=== PATIENT | female | born 1970 | race Caucasian/White ===

== ENCOUNTER → 2016-06-14 | Outpatient (CLI) | payer MEDICAID ==
[~2016-06-14] VITALS: Ht 167.6 cm; Wt 133.8 kg
[~2016-06-14] MED LIST: CEPH500 PO; DOXY100C PO; HYDR25TA PO; IBUP-1546 PO; LIDOCAINE HCL 4% 50 ML SOLUTION TP ONE; LISI-661 PO
[2016-06-14 13:59] VITALS: BP 135/85
[2016-06-14 14:29] VITALS: BP 135/85
== END | disposition home or self-care (01) ==
LOC: HBOWC 13:35
PROVIDERS: ATTEND Emergency Medicine
DX: L98.491 Non-pressure chronic ulcer of skin of other sites limited to breakdown of skin (principal); L73.2 Hidradenitis suppurativa; E66.01 Morbid (severe) obesity due to excess calories; I10 Essential (primary) hypertension; M17.0 Bilateral primary osteoarthritis of knee

== ENCOUNTER → 2016-07-07 | Outpatient (CLI) | payer MEDICAID ==
[~2016-07-07] MED LIST changes: +LIDOCAINE HCL 2% 5 ML JELLY TP ONE; -LIDOCAINE HCL 4% 50 ML SOLUTION TP ONE
[2016-07-07 14:36] VITALS: BP 112/60
== END | disposition home or self-care (01) ==
LOC: HBOWC 13:33
PROVIDERS: ATTEND Emergency Medicine
DX: L98.491 Non-pressure chronic ulcer of skin of other sites limited to breakdown of skin (principal); E66.01 Morbid (severe) obesity due to excess calories; L73.2 Hidradenitis suppurativa; M17.0 Bilateral primary osteoarthritis of knee
CPT/HCPCS: 97597

== ENCOUNTER → 2016-07-21 | Outpatient (CLI) | payer MEDICAID ==
[~2016-07-21] MED LIST changes: -LIDOCAINE HCL 2% 5 ML JELLY TP ONE
[2016-07-21 14:47] VITALS: BP 114/70
== END | disposition home or self-care (01) ==
LOC: HBOWC 13:18
PROVIDERS: ATTEND Emergency Medicine
DX: L98.491 Non-pressure chronic ulcer of skin of other sites limited to breakdown of skin (principal); L73.2 Hidradenitis suppurativa; E66.01 Morbid (severe) obesity due to excess calories; M17.0 Bilateral primary osteoarthritis of knee; I10 Essential (primary) hypertension
CPT/HCPCS: 97597

== ENCOUNTER → 2016-08-09 | Outpatient (CLI) | payer MEDICAID ==
[2016-08-09 09:52] VITALS: BP 128/50
== END | disposition home or self-care (01) ==
LOC: HBOWC 09:15
PROVIDERS: ATTEND Emergency Medicine
DX: L98.491 Non-pressure chronic ulcer of skin of other sites limited to breakdown of skin (principal); L73.2 Hidradenitis suppurativa; E66.01 Morbid (severe) obesity due to excess calories; M17.0 Bilateral primary osteoarthritis of knee; I10 Essential (primary) hypertension

== ENCOUNTER → 2016-08-23 | Outpatient (CLI) | payer OTHER ==
[2016-08-23 14:11] VITALS: BP 109/59
== END | disposition home or self-care (01) ==
LOC: HBOWC 10:48
PROVIDERS: ATTEND Emergency Medicine Undersea and Hyperbaric Medicine
DX: L98.491 Non-pressure chronic ulcer of skin of other sites limited to breakdown of skin (principal); L73.2 Hidradenitis suppurativa; E65 Localized adiposity; E66.01 Morbid (severe) obesity due to excess calories; M19.90 Unspecified osteoarthritis, unspecified site; I10 Essential (primary) hypertension

== ENCOUNTER → 2016-09-13 | Outpatient (CLI) | payer OTHER ==
[2016-09-13 14:36] VITALS: BP 137/86
== END | disposition home or self-care (01) ==
LOC: HBOWC 10:18
PROVIDERS: ATTEND Emergency Medicine
DX: L98.491 Non-pressure chronic ulcer of skin of other sites limited to breakdown of skin (principal); L73.2 Hidradenitis suppurativa; E65 Localized adiposity; E66.01 Morbid (severe) obesity due to excess calories; I10 Essential (primary) hypertension

== ENCOUNTER → 2016-09-27 | Outpatient (CLI) | payer OTHER ==
[2016-09-27 15:06] VITALS: BP 110/59
== END | disposition home or self-care (01) ==
LOC: HBOWC 14:33
PROVIDERS: ATTEND Emergency Medicine
DX: L98.491 Non-pressure chronic ulcer of skin of other sites limited to breakdown of skin (principal); I87.2 Venous insufficiency (chronic) (peripheral); L73.2 Hidradenitis suppurativa; E66.01 Morbid (severe) obesity due to excess calories; I10 Essential (primary) hypertension; E65 Localized adiposity; M17.0 Bilateral primary osteoarthritis of knee

== ENCOUNTER → 2016-10-17 | Outpatient (CLI) | payer OTHER ==
[2016-10-17 11:39] VITALS: BP 139/82
== END | disposition home or self-care (01) ==
LOC: HBOWC 10:33
PROVIDERS: ATTEND Emergency Medicine Undersea and Hyperbaric Medicine
DX: L98.491 Non-pressure chronic ulcer of skin of other sites limited to breakdown of skin (principal); L73.2 Hidradenitis suppurativa; E66.01 Morbid (severe) obesity due to excess calories; M17.0 Bilateral primary osteoarthritis of knee; I10 Essential (primary) hypertension; E65 Localized adiposity

== ENCOUNTER → 2016-11-15 | Outpatient (CLI) | payer OTHER ==
[~2016-11-15] MED LIST changes: +LIDOCAINE HCL 2% 5 ML JELLY TP ONE
[2016-11-15 15:26] VITALS: BP 150/90
== END | disposition home or self-care (01) ==
LOC: HBOWC 14:32
PROVIDERS: ATTEND Emergency Medicine
DX: L98.491 Non-pressure chronic ulcer of skin of other sites limited to breakdown of skin (principal); E66.01 Morbid (severe) obesity due to excess calories; L73.2 Hidradenitis suppurativa; M17.0 Bilateral primary osteoarthritis of knee; I10 Essential (primary) hypertension

== ENCOUNTER → 2016-12-06 | Outpatient (CLI) | payer OTHER ==
[~2016-12-06] MED LIST changes: -LIDOCAINE HCL 2% 5 ML JELLY TP ONE
[2016-12-06 15:02] VITALS: BP 147/75
== END | disposition home or self-care (01) ==
LOC: HBOWC 14:36
PROVIDERS: ATTEND Emergency Medicine
DX: L98.491 Non-pressure chronic ulcer of skin of other sites limited to breakdown of skin (principal); E66.01 Morbid (severe) obesity due to excess calories; L73.2 Hidradenitis suppurativa; I10 Essential (primary) hypertension; M17.0 Bilateral primary osteoarthritis of knee

== ENCOUNTER → 2017-01-08 | Outpatient (CLI) | payer OTHER ==
[2017-01-08 14:01] VITALS: BP 138/73
== END | disposition home or self-care (01) ==
LOC: HBOWC 13:44
PROVIDERS: ATTEND Emergency Medicine
DX: L98.491 Non-pressure chronic ulcer of skin of other sites limited to breakdown of skin (principal); L73.2 Hidradenitis suppurativa; M17.0 Bilateral primary osteoarthritis of knee; I10 Essential (primary) hypertension; E66.01 Morbid (severe) obesity due to excess calories

== ENCOUNTER → 2017-01-29 | Outpatient (CLI) | payer OTHER ==
[2017-01-29 08:40] VITALS: BP 116/60
== END | disposition home or self-care (01) ==
LOC: HBOWC 08:13
PROVIDERS: ATTEND Surgery Plastic and Reconstructive Surgery
DX: L73.2 Hidradenitis suppurativa (principal); E66.01 Morbid (severe) obesity due to excess calories; M17.0 Bilateral primary osteoarthritis of knee; I10 Essential (primary) hypertension

== ENCOUNTER 2024-10-22 08:29 | Day surgery (SDC) | payer OTHER ==
[~2024-10-22] VITALS: Ht 167.6 cm; Wt 138.8 kg
[~2024-10-22 08:29] MED LIST changes: +ACET-66 PO; +CEPH-558 PO; -CEPH500 PO; -HYDR25TA PO; +HYDR25TA2 PO; +IBUP-1506 PO; -IBUP-1546 PO; -LISI-661 PO; +LISI-893 PO; +PROPOFOL 1% ISO-OSM 1000 MG/100 ML BOTTLE ONE; +SODIUM CHLORIDE 0.9% 1,000 ML ONE
[2024-10-22] MEDS: SODIUM CHLORIDE 0.9% 1,000 ML IV ONE (10:06)
[2024-10-22] MEDS ORDERED: OXYGEN THERAPY IH SCH (20:00)
== END 2024-10-22 11:30 | disposition home or self-care (01) ==
LOC: SURGERY 08:29
PROVIDERS: ATTEND Specialist
DX: K62.5 Hemorrhage of anus and rectum (principal); K63.5 Polyp of colon; I10 Essential (primary) hypertension; Z79.899 Other long term (current) drug therapy; Z88.8 Allergy status to other drugs, medicaments and biological substances; Z98.890 Other specified postprocedural states; Z90.710 Acquired absence of both cervix and uterus
CPT/HCPCS: 45385; 88305; C1769; J2704; J7030